=== PATIENT | female | born 1970 | race Caucasian/White ===

== ENCOUNTER 2019-04-05 15:00 | Inpatient (IN) | payer OTHER ==
[~2019-04-05] VITALS: Ht 157.5 cm; Wt 61.2 kg
[2019-04-05 16:25] VITALS: BP 105/59
[2019-04-05] MEDS ORDERED: LEVO137T3 PO (17:12)
--- NOTE | 2019-04-05 17:42 | NUR ---
Admit: Patient admitted from [facility] ER. Patient arrived to unit via gurney accompanied by EMS. Oriented patient to room. Patient reported vision changes x3 since November. patient recently found out she has a septal defect and was scheduled for surgery on Thursday. Consult's called in to answering service
[2019-04-05] MEDS ORDERED: ASPI325T8 PO (17:51)
[2019-04-05 19:50] VITALS: BP 104/51
[2019-04-05 23:30] VITALS: BP 93/51
[2019-04-06 02:45] VITALS: BP 92/50
[2019-04-06 04:35] LABS: BASO # 0.1 x10^3/uL (0.0-0.2); BASO % 1 % (0-3); EOS # 0.1 x10^3/uL (0.0-0.7); EOS % 3 % (0-3); HEMATOCRIT 30.5 % (36.0-47.0); LYMPH # 2.2 x10^3/uL (1.0-4.8); LYMPH % 44 % (24-48); MEAN CORPUSCULAR HEMOGLOBIN 28 pg (25-35); MEAN CORPUSCULAR HGB CONC 33 g/dL (31-37); MEAN CORPUSCULAR VOLUME 85 fL (79-100); MONO # 0.5 x10^3/uL (0.0-1.1); MONO % 10 % (0-9); NEUT % 42 % (31-73); PLATELET COUNT 273 x10^3/uL (140-400); RED BLOOD COUNT 3.59 x10^6/uL (3.50-5.40); RED CELL DISTRIBUTION WIDTH 15.5 % (11.5-14.5); WHITE BLOOD COUNT 4.9 x10^3/uL (4.0-11.0)
[2019-04-06 04:50] LABS: ALBUMIN 3.3 g/dL (3.4-5.0); ALBUMIN/GLOBULIN RATIO 1.2 (1.0-1.7); CALCIUM 8.6 mg/dL (8.5-10.1); GFR 58.7; POTASSIUM 4.4 mmol/L (3.5-5.1); TOTAL BILIRUBIN 0.1 mg/dL (0.2-1.0)
[2019-04-06 04:51] LABS: CHOLESTEROL/HDL RATIO 3.1
[2019-04-06 07:00] VITALS: BP 99/65
[2019-04-06] MEDS ORDERED: ASA/APAP/CAFFEINE 250/250/65MG TABLET. PO PRN (09:30)
--- NOTE | 2019-04-06 10:17 | PDOC ---
[employer] PROGRESS NOTE Chief Complaint Chief Complaint TIA Right eye vision changes History of Present Illness History of Present Illness 04/06/19 Pt seen and examined at bedside Was transferred by EMS from [facility] Was awake and alert, in good spirits Complains of headache, was given Excedrin Was able to explain about PFO and previous TIAs Consulted with neurology and cardiology DW RN Charts and labs reviewed Vitals/I&O Vitals/I&O: Vital Signs Date Time Temp Pulse Resp B/P (MAP) Pulse Ox O2 Delivery O2 Flow Rate FiO2 04/06/19 07:00 98.0 71 16 99/65 (76) 99 Room Air 98.0 I & O 04/05/19 04/05/19 04/06/19 15:00 23:00 07:00 Intake Total 200 ml 600 ml Balance 200 ml 600 ml Physical Exam General: Alert, Oriented X3, Cooperative, No acute distress Heart: Regular rate Lungs: Clear Abdomen: Normal bowel sounds, Soft Extremities: No clubbing, No cyanosis, No edema, Normal pulses Skin: No rashes, No breakdown, No significant lesion Labs Labs: Laboratory Tests Test 04/05/19 19:35 04/06/19 03:10 Erythrocyte Sedimentation Rate 14 (0-25) Vitamin B12 Level 555 pg/mL (247-911) Thyroid Stimulating Hormone (TSH) 2.093 uIU/mL (0.358-3.74) White Blood Count 4.9 x10^3/uL (4.0-11.0) Red Blood Count 3.59 x10^6/uL (3.50-5.40) Hemoglobin 10.0 g/dL (12.0-15.5) Hematocrit 30.5 % (36.0-47.0) Mean Corpuscular Volume 85 fL (79-100) Mean Corpuscular Hemoglobin 28 pg (25-35) Mean Corpuscular Hemoglobin Concent 33 g/dL (31-37) Red Cell Distribution Width 15.5 % (11.5-14.5) Platelet Count 273 x10^3/uL (140-400) Neutrophils (%) (Auto) 42 % (31-73) Lymphocytes (%) (Auto) 44 % (24-48) Monocytes (%) (Auto) 10 % (0-9) Eosinophils (%) (Auto) 3 % (0-3) Basophils (%) (Auto) 1 % (0-3) Neutrophils # (Auto) 2.0 x10^3/uL (1.8-7.7) Lymphocytes # (Auto) 2.2 x10^3/uL (1.0-4.8) Monocytes # (Auto) 0.5 x10^3/uL (0.0-1.1) Eosinophils # (Auto) 0.1 x10^3/uL (0.0-0.7) Basophils # (Auto) 0.1 x10^3/uL (0.0-0.2) Sodium Level 143 mmol/L (136-145) Potassium Level 4.4 mmol/L (3.5-5.1) Chloride Level 108 mmol/L (98-107) Carbon Dioxide Level 26 mmol/L (21-32) Anion Gap 9 (6-14) Blood Urea Nitrogen 17 mg/dL (7-20) Creatinine 1.0 mg/dL (0.6-1.0) Estimated GFR (Cockcroft-Gault) 58.7 BUN/Creatinine Ratio 17 (6-20) Glucose Level 90 mg/dL (70-99) Calcium Level 8.6 mg/dL (8.5-10.1) Total Bilirubin 0.1 mg/dL (0.2-1.0) Aspartate Amino Transf (AST/SGOT) 20 U/L (15-37) Alanine Aminotransferase (ALT/SGPT) 16 U/L (14-59) Alkaline Phosphatase 46 U/L (46-116) Total Protein 6.0 g/dL (6.4-8.2) Albumin 3.3 g/dL (3.4-5.0) Albumin/Globulin Ratio 1.2 (1.0-1.7) Triglycerides Level 56 mg/dL (0-150) Cholesterol Level 157 mg/dL (0-200) LDL Cholesterol, Calculated 95 mg/dL (0-100) VLDL Cholesterol, Calculated 11 mg/dL (0-40) Non-HDL Cholesterol Calculated 106 mg/dL (0-129) HDL Cholesterol 51 mg/dL (40-60) Cholesterol/HDL Ratio 3.1 Review of Systems Review of Systems: No nausea, no vomiting No vision changes, no altered mental status Assessment and Plan Assessmemt and Plan Assessment TIA Patent foramen ovale Plan Brain MRI scheduled per neuro Surgery for PFO scheduled for 04/07 Await results of MRI Excedrin for migraine Wound care Full code Comment Review of Relevant I have reviewed the following items amos (where applicable) has been applied. Medications: Current Medications Medications (Trade) Dose Ordered Sig/Lizette Route PRN Reason Start Time Stop Time Status Last Admin Dose Admin Acetaminophen/ Aspirin/Caffeine (Excedrin Migraine) 1 tab PRN Q6HRS PRN PO MIGRAINE HEADACHE 04/06/19 09:30 04/06/19 09:49 MONI MORRIS III DO Apr 06, 2019 10:17
[2019-04-06 11:00] VITALS: BP 97/57
--- NOTE | 2019-04-06 12:07 | RAD ---
BRAIN W/O CONTRAST History: Right eye vision changes Technique: Multiplanar, multi sequential MR imaging was performed of the brain without contrast. Comparison: None Findings: No acute infarct. No intracranial hemorrhage. No mass effect. No hydrocephalus. Extra-axial spaces are unremarkable. Incidentally noted small pineal cyst. Symmetric appearance of the globes. No infiltration of the retro-orbital fat. Normal course of the optic nerve with normal appearance of the optic chiasm. Extraocular muscles appear normal. Right maxillary sinus mucosal thickening with fluid. Impression: 1. No acute intracranial abnormality. 2. Right maxillary sinus disease, can be seen with acute sinusitis in the appropriate clinical setting. Electronically signed by: Dion Rodriguez DO (04/06/2019 12:04 PM) [id number]
--- NOTE | 2019-04-06 12:30 | PDOC2 ---
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 This is not the first time this happened to her. Her initial episode was 11/2018 and had left arm paresthesia at that time and also circumoral tingling blurred vision and also difficulty remembering names of individuals that she had known in the setting of heavy menstrual bleed. 02/2019 She had another episode and this is more isolated to her vision and also at that time with iatrogenic hyperthyroidism due to Synthroid use. She was evaluated by neurologist.and noted with photopsia and blurred vision that lasted about 40 minutes, also with IBRAHIM, and was suspected with TIA vs migraine. Yesterday she presented at [place] with same problem. She was at work when she suddenly she could not see to her right eye and her vision is like looking to a kaleidoscope. This time she also has heavy menstrual bleed and also was having bilateral IBRAHIM felt pounding and pressure. She still has regular periods. Her visual deficit lasted for about 30 minutes. Denies any other focal deficits. PAST MEDICAL HISTORY Cardiovascular: Other (PFO) CENTRAL NERVOUS SYSTEM: Migraine, TIA GI: No pertinent hx Heme/Onc: Anemia NOS Hepatobiliary: No pertinent hx Musculoskeletal: Osteoarthritis Rheumatologic: No pertinent hx Infectious disease: No pertinent hx ENT: No pertinent hx Renal/: No pertinent hx Endocrine: Hypothyroidism, Other (menorrhagia) Dermatology: No pertinent hx PAST SURGICAL HISTORY Past Surgical History: Tonsillectomy, Other (bladder sling) FAMILY HISTORY Family History: Hypertension SOCIAL HISTORY Smoke: No ALCOHOL: occassional Drugs: None Lives: with Family CURRENT MEDICATIONS CURRENT MEDICATIONS Current Medications Medications (Trade) Dose Ordered Sig/Lizette Route PRN Reason Start Time Stop Time Status Last Admin Dose Admin Acetaminophen/ Aspirin/Caffeine (Excedrin Migraine) 1 tab PRN Q6HRS PRN PO MIGRAINE HEADACHE 04/06/19 09:30 04/06/19 09:49 ALLERGIES ALLERGIES: Coded Allergies: No Known Allergies (Verified Allergy, Unknown, 04/06/19) ROS Review of System 14 point ROS evaluated with pertinent positives noted per HPI PHYSICAL EXAM General: Alert, Oriented X3, Cooperative, No acute distress HEENT: Atraumatic, Mucous membr. moist/pink Lungs: Clear to auscultation, Normal air movement Heart: Regular rate (SR), Normal S1, Normal S2, No murmurs Abdomen: Soft, No tenderness Extremities: No cyanosis, No edema Skin: No breakdown, No significant lesion Neuro: Normal speech, Sensation intact Psych/Mental Status: Mental status NL, Mood NL MUSCULOSKELETAL: Osteoarthritic changes both hands VITALS/I&O VITALS/I&O: Vital Signs Date Time Temp Pulse Resp B/P (MAP) Pulse Ox O2 Delivery O2 Flow Rate FiO2 04/06/19 08:00 Room Air 04/06/19 07:00 98.0 71 16 99/65 (76) 99 98.0 I & O 04/05/19 04/05/19 04/06/19 15:00 23:00 07:00 Intake Total 200 ml 600 ml Balance 200 ml 600 ml LABS Lab: Laboratory Tests Test 04/05/19 19:35 04/06/19 03:10 Erythrocyte Sedimentation Rate 14 (0-25) Vitamin B12 Level 555 pg/mL (247-911) Thyroid Stimulating Hormone (TSH) 2.093 uIU/mL (0.358-3.74) White Blood Count 4.9 x10^3/uL (4.0-11.0) Red Blood Count 3.59 x10^6/uL (3.50-5.40) Hemoglobin 10.0 g/dL (12.0-15.5) L Hematocrit 30.5 % (36.0-47.0) L Mean Corpuscular Volume 85 fL (79-100) Mean Corpuscular Hemoglobin 28 pg (25-35) Mean Corpuscular Hemoglobin Concent 33 g/dL (31-37) Red Cell Distribution Width 15.5 % (11.5-14.5) H Platelet Count 273 x10^3/uL (140-400) Neutrophils (%) (Auto) 42 % (31-73) Lymphocytes (%) (Auto) 44 % (24-48) Monocytes (%) (Auto) 10 % (0-9) H Eosinophils (%) (Auto) 3 % (0-3) Basophils (%) (Auto) 1 % (0-3) Neutrophils # (Auto) 2.0 x10^3/uL (1.8-7.7) Lymphocytes # (Auto) 2.2 x10^3/uL (1.0-4.8) Monocytes # (Auto) 0.5 x10^3/uL (0.0-1.1) Eosinophils # (Auto) 0.1 x10^3/uL (0.0-0.7) Basophils # (Auto) 0.1 x10^3/uL (0.0-0.2) Sodium Level 143 mmol/L (136-145) Potassium Level 4.4 mmol/L (3.5-5.1) Chloride Level 108 mmol/L (98-107) H Carbon Dioxide Level 26 mmol/L (21-32) Anion Gap 9 (6-14) Blood Urea Nitrogen 17 mg/dL (7-20) Creatinine 1.0 mg/dL (0.6-1.0) Estimated GFR (Cockcroft-Gault) 58.7 BUN/Creatinine Ratio 17 (6-20) Glucose Level 90 mg/dL (70-99) Calcium Level 8.6 mg/dL (8.5-10.1) Total Bilirubin 0.1 mg/dL (0.2-1.0) L Aspartate Amino Transferase (AST) 20 U/L (15-37) Alanine Aminotransferase (ALT) 16 U/L (14-59) Alkaline Phosphatase 46 U/L (46-116) Total Protein 6.0 g/dL (6.4-8.2) L Albumin 3.3 g/dL (3.4-5.0) L Albumin/Globulin Ratio 1.2 (1.0-1.7) Triglycerides Level 56 mg/dL (0-150) Cholesterol Level 157 mg/dL (0-200) LDL Cholesterol, Calculated 95 mg/dL (0-100) VLDL Cholesterol, Calculated 11 mg/dL (0-40) Non-HDL Cholesterol Calculated 106 mg/dL (0-129) HDL Cholesterol 51 mg/dL (40-60) Cholesterol/HDL Ratio 3.1 Laboratory Tests 04/06/19 03:10 Laboratory Tests 04/06/19 03:10 ECHOCARDIOGRAM ECHOCARDIOGRAM <Conclusion> The left ventricular systolic function is normal. The Ejection Fraction is 60%. There is normal LV segmental wall motion. Trace mitral regurgitation. Trace tricuspid regurgitation with an estimated PAP of 22 mmHg. There is no evidence of significant pericardial effusion. Bubble study positive for PFO/ASD DATE: 03/30/19 0809 ASSESSMENT/PLAN ASSESSMENT/PLAN 1. Possible TIA vs Migraine with visual aura with past sensory/language aura 2. Menorrhagia: which could have induced above 3. PFO: initially noted 03/30/2019 via TTE 4. Hypothyroidism: on replacement Recommendations 1. Brain MRI, consult neurology 2. ASA given 3. Plan for PFO closure tomorrow pending MRI studies. 4. Will need GROCERY SUPERVISOR referral for menorrhagia management. GREGORY MOLINA MD 04/06/19 1643: CARDIAC CONSULT ASSESSMENT/PLAN ASSESSMENT/PLAN Patient seen and examined. Agree with VIDEOTAPE OPERATOR's assessment and plan. Patient admitted for recurrent episodes of TIA and probable migraine with aura Recent 2-D echo with bubbles showed PFO Plan for percutaneous closure of patent foramen ovale tomorrow Risks and benefits explained and she is agreeable Thank you for your consultation JANET MITTAL APRN Apr 06, 2019 12:30 GREGORY MOLINA MD Apr 06, 2019 16:43
--- NOTE | 2019-04-06 13:49 | NUR ---
SS following for discharge planning. SS reviewed pt chart. Pt is from home with spouse and is currently on room air. No discharge needs noted at this time. SS will continue to follow for discharge planning.
[2019-04-06 15:00] VITALS: BP 100/55
--- NOTE | 2019-04-06 16:22 | PDOC2 ---
NEUROLOGY CONSULT Date of Admission Date of Admission DATE: 04/06/19 TIME: 15:29 Reason for Consult Reason for Consult: NEUROLOGY CONSULTATION 04-05-2019 IMPRESSION: TIA? Migraine variant with aura symptoms. Premenstrual syndrome. PFO. RECOMMENDATIONS/PLAN: Brain MRI performed. Cardiology consulted. ASA daily. HISTORY OF PRESENT ILLNESS This is a 48-year-old female patient without significant PMH had several episodes of right eye vision disturbances since 11/2018. Her right eye visual disturbances were described as if spots in field or decreased brightness in field lasting for about 15 minutes then resolved. She had headaches afterwards. She stated she often has headaches during her menstrual period for several days, but can be halted by OTC NSAIDs. She was seen in [place] and was thought to have TIA and PFO was found. She has been taken ASA 325 mg daily for about 2 months now, but still has similar episode. She had another one in her menstruation period this time. No symptoms of focalized sensory or motor deficits though stated had numbness and tingling in all UE and LE sometime in the past. No symptoms of MS or myelitis. PAST MEDICAL HISTORY Cardiovascular: PFO. CENTRAL NERVOUS SYSTEM: Migraine, TIA ? GI: No pertinent hx Heme/Onc: Anemia NOS Hepatobiliary: No pertinent hx Musculoskeletal: Osteoarthritis Rheumatologic: No pertinent hx Infectious disease: No pertinent hx ENT: No pertinent hx Renal/: No pertinent hx Endocrine: Hypothyroidism, Other (menorrhagia) Dermatology: No pertinent hx PAST SURGICAL HISTORY Tonsillectomy, Other (bladder sling) FAMILY HISTORY Hypertension ALLERGY: NKDA MEDICATIONS: Refer to MAR SOCIAL HISTORY: Lives at home. Denies smoking and illicit drug use. She drinks occasionally. REVIEW OF SYSTEMS: Constitutional: No malnutrition, weight loss, cachexia. Head: No traumatic brain or head injury. Skin: No edema, or rash. Ear: No infection. Eyes: No vision loss or color blindness. Nose: No bleeding or purulent discharges. Hearing: No hearing decrease. Neck: No injury. Breast: No history of cancer, masses,or discharges. Cardiac: No SC, arrhythmia,claudication, CAD, s/p CABG, AFib, Pacemaker Placement, HTN, HLD. Pulmonary: No pneumonia, COPD. GI: No GI ulcer, GI bleeding, GERD. Urinary/genital: No dysuria, incontinence, urinary retention. Endocrinologic: No cousin face, craniofacial dysmorphism. Skeletomuscular: No muscular atrophy, deformity. Neurological: see HP. Psychiatric: Denies drug use/abuse. Otherwise, not -rxqsv review of systems. PHYSICAL EXAMINATION: General appearance is in no acute distress. HEENT: Normocephalic and nontraumatic. Eyes, nose, ears, and throat are unremarkable. Neck is supple. No lymphadenopathy. No crepitus. Cardiovascular: S1, S2, regular rate and rhythm. Pulmonary: Clear to auscultation bilaterally. Abdomen: Bowel sounds are positive. Abdomen is soft, nontender, and nondistended. Extremities: No rash, lesions, or edema. No restriction of range of motion NEUROLOGICAL EXAMINATION: Alert Oriented to time, place and person. PERRL. EOMI. CN: no focal findings. Muscle tone: within normal. Muscle strength: 5 DTR: 2 Plantar reflex: Flexor response bilaterally Gait: not examined in bed. Sensory exam: no abnormal findings. No cerebellar signs elicited. F-T-N test accurate. Current Medications Current Medications Current Medications Acetaminophen/ Aspirin/Caffeine (Excedrin Migraine) 1 tab PRN Q6HRS PRN PO MIGRAINE HEADACHE Last administered on 04/06/19at 09:49; Start 04/06/19 at 09:30 Active Scripts Active Reported Aspirin 325 Mg Tablet 325 Mg PO DAILY Levothyroxine Sodium 137 Mcg Tablet 137 Mcg PO DAILY06 Allergies Allergies: Allergies Coded Allergies Type Severity Reaction Last Updated Verified No Known Allergies Allergy Unknown 04/06/19 Yes ROS Review of System The patient denies any associated fevers, chills, headache, ear pain, rhinorrhea, sore throat, stiff neck, productive cough, chest pain, shortness of breath, back or flank pain, abdominal pain, nausea, vomiting, diarrhea, constipation, dysuria, rash, numbness, weakness, tingling, incontinence, difficulty ambulating, or diaphoresis. Physical Exam Physical Exam General: Well developed, well nourished, no acute distress, well appearing HEENT: Pupils equally round and reactive to light, EOMI, no discharge, normal conjunctiva Neck: Supple, no nuchal rigidity, no JVD, trachea midline, no tenderness Cardiac: RRR, no murmurs, no gallops, no rubs Chest/Lungs: CTAB, no wheeze, no rhonchi, no crackles Abdomen: soft, non-distended, no guarding, no peritoneal signs, non-tender Back: No tenderness Extremities: no edema, pulses intact, non-tender,capillary refill <3 sec bilateral upper and lower extremities, Neuro: Alert and oriented x 4, no focal deficits, normal speech Vitals Vitals: Vital Signs Date Time Temp Pulse Resp B/P (MAP) Pulse Ox O2 Delivery O2 Flow Rate FiO2 04/06/19 15:00 98.1 81 16 100/55 (70) 100 Room Air 98.1 Labs Labs Laboratory Tests Test 04/05/19 19:35 04/06/19 03:10 Erythrocyte Sedimentation Rate 14 (0-25) Vitamin B12 Level 555 pg/mL (247-911) Thyroid Stimulating Hormone (TSH) 2.093 uIU/mL (0.358-3.74) White Blood Count 4.9 x10^3/uL (4.0-11.0) Red Blood Count 3.59 x10^6/uL (3.50-5.40) Hemoglobin 10.0 g/dL (12.0-15.5) Hematocrit 30.5 % (36.0-47.0) Mean Corpuscular Volume 85 fL (79-100) Mean Corpuscular Hemoglobin 28 pg (25-35) Mean Corpuscular Hemoglobin Concent 33 g/dL (31-37) Red Cell Distribution Width 15.5 % (11.5-14.5) Platelet Count 273 x10^3/uL (140-400) Neutrophils (%) (Auto) 42 % (31-73) Lymphocytes (%) (Auto) 44 % (24-48) Monocytes (%) (Auto) 10 % (0-9) Eosinophils (%) (Auto) 3 % (0-3) Basophils (%) (Auto) 1 % (0-3) Neutrophils # (Auto) 2.0 x10^3/uL (1.8-7.7) Lymphocytes # (Auto) 2.2 x10^3/uL (1.0-4.8) Monocytes # (Auto) 0.5 x10^3/uL (0.0-1.1) Eosinophils # (Auto) 0.1 x10^3/uL (0.0-0.7) Basophils # (Auto) 0.1 x10^3/uL (0.0-0.2) Sodium Level 143 mmol/L (136-145) Potassium Level 4.4 mmol/L (3.5-5.1) Chloride Level 108 mmol/L (98-107) Carbon Dioxide Level 26 mmol/L (21-32) Anion Gap 9 (6-14) Blood Urea Nitrogen 17 mg/dL (7-20) Creatinine 1.0 mg/dL (0.6-1.0) Estimated GFR (Cockcroft-Gault) 58.7 BUN/Creatinine Ratio 17 (6-20) Glucose Level 90 mg/dL (70-99) Calcium Level 8.6 mg/dL (8.5-10.1) Total Bilirubin 0.1 mg/dL (0.2-1.0) Aspartate Amino Transf (AST/SGOT) 20 U/L (15-37) Alanine Aminotransferase (ALT/SGPT) 16 U/L (14-59) Alkaline Phosphatase 46 U/L (46-116) Total Protein 6.0 g/dL (6.4-8.2) Albumin 3.3 g/dL (3.4-5.0) Albumin/Globulin Ratio 1.2 (1.0-1.7) Triglycerides Level 56 mg/dL (0-150) Cholesterol Level 157 mg/dL (0-200) LDL Cholesterol, Calculated 95 mg/dL (0-100) VLDL Cholesterol, Calculated 11 mg/dL (0-40) Non-HDL Cholesterol Calculated 106 mg/dL (0-129) HDL Cholesterol 51 mg/dL (40-60) Cholesterol/HDL Ratio 3.1 Laboratory Tests Test 04/05/19 19:35 04/06/19 03:10 Erythrocyte Sedimentation Rate 14 (0-25) Vitamin B12 Level 555 pg/mL (247-911) Thyroid Stimulating Hormone (TSH) 2.093 uIU/mL (0.358-3.74) White Blood Count 4.9 x10^3/uL (4.0-11.0) Red Blood Count 3.59 x10^6/uL (3.50-5.40) Hemoglobin 10.0 g/dL (12.0-15.5) Hematocrit 30.5 % (36.0-47.0) Mean Corpuscular Volume 85 fL (79-100) Mean Corpuscular Hemoglobin 28 pg (25-35) Mean Corpuscular Hemoglobin Concent 33 g/dL (31-37) Red Cell Distribution Width 15.5 % (11.5-14.5) Platelet Count 273 x10^3/uL (140-400) Neutrophils (%) (Auto) 42 % (31-73) Lymphocytes (%) (Auto) 44 % (24-48) Monocytes (%) (Auto) 10 % (0-9) Eosinophils (%) (Auto) 3 % (0-3) Basophils (%) (Auto) 1 % (0-3) Neutrophils # (Auto) 2.0 x10^3/uL (1.8-7.7) Lymphocytes # (Auto) 2.2 x10^3/uL (1.0-4.8) Monocytes # (Auto) 0.5 x10^3/uL (0.0-1.1) Eosinophils # (Auto) 0.1 x10^3/uL (0.0-0.7) Basophils # (Auto) 0.1 x10^3/uL (0.0-0.2) Sodium Level 143 mmol/L (136-145) Potassium Level 4.4 mmol/L (3.5-5.1) Chloride Level 108 mmol/L (98-107) Carbon Dioxide Level 26 mmol/L (21-32) Anion Gap 9 (6-14) Blood Urea Nitrogen 17 mg/dL (7-20) Creatinine 1.0 mg/dL (0.6-1.0) Estimated GFR (Cockcroft-Gault) 58.7 BUN/Creatinine Ratio 17 (6-20) Glucose Level 90 mg/dL (70-99) Calcium Level 8.6 mg/dL (8.5-10.1) Total Bilirubin 0.1 mg/dL (0.2-1.0) Aspartate Amino Transf (AST/SGOT) 20 U/L (15-37) Alanine Aminotransferase (ALT/SGPT) 16 U/L (14-59) Alkaline Phosphatase 46 U/L (46-116) Total Protein 6.0 g/dL (6.4-8.2) Albumin 3.3 g/dL (3.4-5.0) Albumin/Globulin Ratio 1.2 (1.0-1.7) Triglycerides Level 56 mg/dL (0-150) Cholesterol Level 157 mg/dL (0-200) LDL Cholesterol, Calculated 95 mg/dL (0-100) VLDL Cholesterol, Calculated 11 mg/dL (0-40) Non-HDL Cholesterol Calculated 106 mg/dL (0-129) HDL Cholesterol 51 mg/dL (40-60) Cholesterol/HDL Ratio 3.1 ANANTH VILLANUEVA MD Apr 06, 2019 16:22
[2019-04-06 19:00] VITALS: BP 127/66
[2019-04-06 23:00] VITALS: BP 103/51
[2019-04-07] VITALS (10 sets, daily range): BP systolic 100–121; BP diastolic 54–67
[2019-04-07] MEDS ORDERED: LIDOCAINE 2% PF 5 ML VIAL. ONE (06:36)
[2019-04-07] MEDS ORDERED: PROPOFOL 40 ML IV ONE (06:36)
[2019-04-07] MEDS ORDERED: PROPOFOL 100 ML IV ONE (06:36)
[2019-04-07] MEDS ORDERED: IOHEXOL 300 MG/ML 100ML VIAL. ONE (06:38)
[2019-04-07] MEDS ORDERED: LIDOCAINE 1% Multi-Dose 20 ML VIAL. ONE (06:38)
[2019-04-07] MEDS ORDERED: HEPARIN for ARTERIAL LINE 1,500 ML ONE (06:38)
[2019-04-07] MEDS ORDERED: KETAMINE HCL IN NACL, ISO-OSM 50 MG/5 ML SYRINGE ONE (07:29)
[2019-04-07] MEDS ORDERED: MIDAZOLAM HCL/PF 2 MG/2 ML VIAL. ONE (07:30)
[2019-04-07] MEDS ORDERED: CLOPIDOGREL BISULFATE 75 MG TABLET ONE (07:46)
[2019-04-07] MEDS ORDERED: ASPIRIN 325 MG TABLET ONE (07:46)
[2019-04-07] MEDS ORDERED: HEPARIN for IV BOLUS 10,000 UNIT/10 ML VIAL. ONE (07:46)
[2019-04-07] MEDS ORDERED: LIDOCAINE 2% TOPICAL JELLY 30GM TUBE. TP ONE ×2 (07:51→08:30)
[2019-04-07] MEDS ORDERED: BENZOCAINE ONE 20% MUCOSAL SPRAY. (07:51)
[2019-04-07] MEDS ORDERED: ASPIRIN 325 MG TABLET PO ONE (08:30)
[2019-04-07] MEDS ORDERED: HEPARIN for IV BOLUS 10,000 UNIT/10 ML VIAL. IV ONE (08:30)
[2019-04-07] MEDS ORDERED: BENZOCAINE ONE 20% MUCOSAL SPRAY. MM (08:30)
[2019-04-07] MEDS ORDERED: LIDOCAINE 1% Multi-Dose 20 ML VIAL. INJ ONE (08:30)
[2019-04-07] MEDS ORDERED: CLOPIDOGREL BISULFATE 75 MG TABLET PO ONE (08:30)
[2019-04-07] MEDS ORDERED: IOHEXOL 300 MG/ML 100ML VIAL. IART ONE (08:30)
[2019-04-07] MEDS ORDERED: fentaNYL PF VIAL 100 MCG/2 ML VIAL ONE (08:50)
[2019-04-07] MEDS ORDERED: fentaNYL PF VIAL 100 MCG/2 ML VIAL IV ONE ×2 (09:15)
[2019-04-07] MEDS ORDERED: IV 1/2 NORMAL SALINE 1,000 ML IV SCH (10:00)
[2019-04-07] MEDS ORDERED: 0.9 % SODIUM CHLORIDE 10 ML DISP.SYRIN. IV PRN (10:00)
[2019-04-07] MEDS ORDERED: NITROGLYCERIN SUBLINGUAL 0.4 MG BOTTLE OF 25. SL PRN (10:00)
--- NOTE | 2019-04-07 10:05 | CARD ---
MR#: [id number] Date of Study: 04/07/2019 Ordering Physician: GREGORY TIMMONS, Referring Physician: Micha HUSTON: Shima Alvarez RDCS APPROVED REPORT EXAM: Two-dimensional and M-mode echocardiogram with Doppler and color Doppler. INDICATION PFO Reason For Test : PFO Closure PROCEDURE After obtaining informed consent, patient underwent transesophageal echo in the Marketing Coordinator. Type of Sedation : General Anesthesia Sedation was administered by General Anesthesia. Throughout the procedure, the blood pressure, pulse oximetry, cardiac rhythm, and rate were monitored . LEFT VENTRICLE The left ventricle is normal size. There is normal left ventricular wall thickness. The left ventricu lar systolic function is normal. The Ejection Fraction is 55-60%. There is normal LV segmental wall m otion. RIGHT VENTRICLE The right ventricle is normal size. There is normal right ventricular wall thickness. The right ventr icular systolic function is normal. ATRIA The left atrium size is normal. The right atrium size is normal. The atrial septum is mildly aneurysm al. GREAT VESSELS na PERICARDIAL EFFUSION There is no evidence of significant pericardial effusion. Critical Notification Critical Value: No <Conclusion> The left ventricular systolic function is normal. The Ejection Fraction is 55-60%. There is normal LV segmental wall motion. Patent Foramen Ovale closed successfully with 25mm Amplatzer PFO Occluder under PERCY and Fluoro guidan ce. Signed by : Gregory Timmons, Electronically Approved : 04/07/2019 10:05:16
[2019-04-07] MEDS ORDERED: ONDANSETRON PF 4 MG/2 ML VIAL. IVP PRN (10:15)
--- NOTE | 2019-04-07 10:26 | CARD ---
MR#: [id number] Date of Study: 04/07/2019 Ordering Physician: GREGORY MOLINA, Referring Physician: GREGORY MOLINA, Tech: APPROVED REPORT Procedure(s) performed: Successful percutaneous closure of patent foramen ovale under transesophageal and fluoroscopy guidance Fluoro time: 6.6min Dose: 4 Gycm2 Contrast: 4cc INDICATION The indication(s) include : Recurrent cryptogenic episodes of transient ischemic attacks. PROCEDURE NARRATIVE After explaining the risks, benefits and alternative options, informed consent was obtained from tremayne ent. Patient was brought to the cardiac Court Liaison and her right groin was prepped and draped in the us ual fashion. A transesophageal echocardiogram probe was placed and standard tomographic images includ ing color Doppler images were obtained to identify the patent foramen ovale. 10 mL of 2% lidocaine wa s infiltrated into the skin and subcutaneous tissues of right groin for local anesthesia. Venous acce ss was obtained in the right common femoral vein and a 6 Samoan sheath was inserted. A 6 Samoan multi purpose catheter with side holes were then advanced under fluoroscopy guidance and the PFO was crosse d. With the tip of the catheter position in the right upper pulmonic vein, contrast injections were p erformed for left atrial angiography. A 0.035 inch stiff Amplatzer guidewire was then advanced into the left upper pulmonic vein. The venou s access site was sequentially dilated and a 10 Samoan Amplatzer sheath was advanced and the tip was positioned in the left atrium. A 25 mm Amplatzer PFO occluder was then loaded on an Amplatzer Trevisi o intravascular delivery system. This was advanced through the sheath and under PERCY and fluoroscopy g uidance it was successfully deployed across the patent foramen ovale. After confirming position in se veral views, this was released. Hemostasis in the right groin was achieved using Perclose suture clos ure device. Patient tolerated the procedure well. There were no immediate complications. Conclusion Successful percutaneous closure of patent foramen ovale for recurrent and cryptogenic TIA. Recommendations 1. Aspirin 325 mg daily for 6 months 2. Plavix 75 mg daily for 3 months 3. Antibiotic prophylaxis for dental procedures for 6 months Signed by : Gregory Pasnoori, Electronically Approved : 04/07/2019 10:25:32
--- NOTE | 2019-04-07 11:30 | PDOC ---
[facility] PROGRESS NOTE Chief Complaint Chief Complaint TIA Right eye vision changes History of Present Illness History of Present Illness 04/07/19 Pt was seen and examined at bedside Was resting after procedure Joined by Procedure was successful, PFO repaired Right maxillary sinus disease seen on brain MRI Follow up recommended for heavy menstrual bleeding Charts and labs reviewed SARAI RN 04/06/19 Pt seen and examined at bedside Was transferred [facility] Was awake and alert, in good spirits Complains of headache, was given Excedrin Was able to explain about PFO and previous TIAs Consulted with neurology and cardiology SARAI RN Charts and labs reviewed Vitals/I&O Vitals/I&O: Vital Signs Date Time Temp Pulse Resp B/P (MAP) Pulse Ox O2 Delivery O2 Flow Rate FiO2 04/07/19 11:00 98.0 65 18 104/63 (77) 99 Room Air 98.0 04/07/19 10:14 2.0 I & O 04/06/19 04/06/19 04/07/19 14:59 22:59 06:59 Intake Total 1600 ml 0 ml Output Total 801 ml 900 ml 0 ml Balance -801 ml 700 ml 0 ml Physical Exam General: Alert, Oriented X3, Cooperative, No acute distress Heart: Regular rate (SR), Normal S1, Normal S2, No murmurs Lungs: Clear Abdomen: Soft, No tenderness, No masses Extremities: No clubbing, No cyanosis, No edema, Normal pulses, No tenderness/swelling Skin: No rashes, No breakdown, No significant lesion Review of Systems Review of Systems: No nausea, no vomiting No headache, no vision changes Assessment and Plan Assessmemt and Plan Assessment TIA PFO Menorrhagia Plan ASA daily Wound care Cardiac monitoring Activity as tolerated Augmentin for sinusitis [employer] HEAD follow up recommended D/C later today Comment Review of Relevant I have reviewed the following items amos (where applicable) has been applied. Medications: Current Medications Medications (Trade) Dose Ordered Sig/Lizette Route PRN Reason Start Time Stop Time Status Last Admin Dose Admin Heparin Sodium/ Sodium Chloride (HEPARIN for ARTERIAL LINE FLUSH) 1,000 unit 1X ONCE IART 04/07/19 08:30 04/07/19 08:37 DC 04/07/19 08:52 Iohexol (Omnipaque 300 Mg/ml) 4 ml 1X ONCE IART 04/07/19 08:30 04/07/19 08:37 DC 04/07/19 08:54 Clopidogrel Bisulfate (Plavix) 300 mg 1X ONCE PO 04/07/19 08:30 04/07/19 08:37 DC 04/07/19 08:54 Aspirin (Shirlene Aspirin) 325 mg 1X ONCE PO 04/07/19 08:30 04/07/19 08:37 DC 04/07/19 08:54 Heparin Sodium (Porcine) (Heparin Sodium) 5,000 unit 1X ONCE IV 04/07/19 08:30 04/07/19 08:37 DC 04/07/19 08:56 Cefazolin Sodium 50 ml @ 100 mls/hr 1X ONCE IV 04/07/19 08:30 04/07/19 08:59 DC 04/07/19 08:00 Lidocaine HCl (Lidocaine 1% 20ml Vial) 20 ml 1X ONCE INJ 04/07/19 08:30 04/07/19 08:37 DC 04/07/19 08:53 Benzocaine (Hurricaine One) 2 spray 1X ONCE MM 04/07/19 08:30 04/07/19 08:37 DC 04/07/19 08:53 Lidocaine HCl (Xylocaine 2% Topical 30gm Tube) 1 kirk 1X ONCE TP 04/07/19 08:30 04/07/19 08:37 DC 04/07/19 08:30 Fentanyl Citrate (Fentanyl 2ml Vial) 50 mcg 1X ONCE IV 04/07/19 09:15 04/07/19 09:16 DC 04/07/19 08:51 Fentanyl Citrate (Fentanyl 2ml Vial) 50 mcg 1X ONCE IV 04/07/19 09:15 04/07/19 09:16 DC 04/07/19 09:00 Ondansetron HCl (Zofran) 4 mg PRN Q6HRS PRN IVP NAUSEA/VOMITING 04/07/19 10:15 04/07/19 10:19 MONI MORRIS III DO Apr 07, 2019 11:30
--- NOTE | 2019-04-07 13:15 | PDOC ---
PROGRESS NOTES Assessment Assessment TIA? Migraine variant with aura symptoms. PFO. No evidence of acute CVA this time. No evidence of acute optic neuritis this time. RECOMMENDATIONS/PLAN: ASA daily. She has PFO closure on 04/07/19. Discussed with her and her at bedside on a daily basis. HISTORY OF PRESENT ILLNESS This is a 48-year-old female patient without significant PMH had several episodes of right eye vision disturbances since 11/2018. Her right eye visual disturbances were described as if spots in field or decreased brightness in f ield lasting for about 15 minutes then resolved. She had headaches afterwards. She stated she often has headaches during her menstrual period for several days, but can be halted by OTC NSAIDs. She was seen in [place] and was thought to have TIA and PFO was found. She has been taken ASA 325 mg daily for about 2 months now, but still has similar episode. She had another one in her menstruation period this time. No symptoms of focalized sensory or motor deficits though stated had numbness and tingling in all UE and LE sometime in the past. No symptoms of MS or myelitis. No recurrent episodes since being here. PAST MEDICAL HISTORY Cardiovascular: PFO. CENTRAL NERVOUS SYSTEM: Migraine, TIA ? GI: No pertinent hx Heme/Onc: Anemia NOS Hepatobiliary: No pertinent hx Musculoskeletal: Osteoarthritis Rheumatologic: No pertinent hx Infectious disease: No pertinent hx ENT: No pertinent hx Renal/: No pertinent hx Endocrine: Hypothyroidism, Other (menorrhagia) Dermatology: No pertinent hx PAST SURGICAL HISTORY Tonsillectomy, Other (bladder sling) FAMILY HISTORY Hypertension ALLERGY: NKDA MEDICATIONS: Refer to MAR SOCIAL HISTORY: Lives at home. Denies smoking and illicit drug use. She drinks occasionally. REVIEW OF SYSTEMS: Constitutional: No malnutrition, weight loss, cachexia. Head: No traumatic brain or head injury. Skin: No edema, or rash. Ear: No infection. Eyes: No vision loss or color blindness. Nose: No bleeding or purulent discharges. Hearing: No hearing decrease. Neck: No injury. Breast: No history of cancer, masses,or discharges. Cardiac: No LA, arrhythmia,claudication, CAD, s/p CABG, AFib, Pacemaker Placement, HTN, HLD. Pulmonary: No pneumonia, COPD. GI: No GI ulcer, GI bleeding, GERD. Urinary/genital: No dysuria, incontinence, urinary retention. Endocrinologic: No cousin face, craniofacial dysmorphism. Skeletomuscular: No muscular atrophy, deformity. Neurological: see HP. Psychiatric: Denies drug use/abuse. Otherwise, not [id number] review of systems. PHYSICAL EXAMINATION: General appearance is in no acute distress. HEENT: Normocephalic and nontraumatic. Eyes, nose, ears, and throat are unremarkable. Neck is supple. No lymphadenopathy. No crepitus. Cardiovascular: S1, S2, regular rate and rhythm. Pulmonary: Clear to auscultation bilaterally. Abdomen: Bowel sounds are positive. Abdomen is soft, nontender, and nondist ended. Extremities: No rash, lesions, or edema. No restriction of range of motion NEUROLOGICAL EXAMINATION: Alert Oriented to time, place and person. PERRL. EOMI. CN: no focal findings. Muscle tone: within normal. Muscle strength: 5 DTR: 2 Plantar reflex: Flexor response bilaterally Gait: At her baseline normal. Sensory exam: no abnormal findings. No cerebellar signs elicited. F-T-N test accurate. Objective Objective Vital Signs Date Time Temp Pulse Resp B/P (MAP) Pulse Ox O2 Delivery O2 Flow Rate FiO2 04/07/19 11:00 98.0 65 18 104/63 (77) 99 Room Air 98.0 04/07/19 10:14 2.0 Intake and Output 04/07/19 07:00 Intake Total 1600 ml Output Total 1701 ml Balance -101 ml Intake Oral 1600 ml Output Urine Total 1701 ml Vitals Signs Vitals VS - Last 72 Hours, by Label Date Time Temp Pulse Resp B/P (MAP) Pulse Ox O2 Delivery O2 Flow Rate FiO2 04/07/19 11:00 98.0 65 18 104/63 (77) 99 Room Air 98.0 04/07/19 10:59 70 104/67 (79) 04/07/19 10:48 65 104/63 (77) 04/07/19 10:44 63 101/65 (77) 04/07/19 10:29 63 101/64 (76) 04/07/19 10:14 71 100/64 (76) 04/07/19 10:14 100 Nasal Cannula 2.0 04/07/19 10:14 100 Nasal Cannula 2.0 04/07/19 09:58 71 104/65 (78) 04/07/19 09:44 100/59 (73) 04/07/19 09:17 97.3 61 16 93/51 100 Nasal Cannula 2 97.3 04/07/19 09:01 75 17 96/56 Nasal Cannula 2 04/07/19 09:00 17 100 Nasal Cannula 2.0 04/07/19 08:51 16 100 Nasal Cannula 2.0 04/07/19 08:47 97.2 75 17 98/58 100 Nasal Cannula 2 97.2 04/07/19 08:47 Nasal Cannula 2 04/07/19 03:00 98.0 63 16 114/54 (74) 98 Room Air 98.0 04/06/19 23:00 98.1 65 20 103/51 (68) 98 Room Air 98.1 04/06/19 20:00 Room Air 04/06/19 19:00 98.1 84 16 127/66 (86) 98 Room Air 98.1 04/06/19 15:00 98.1 81 16 100/55 (70) 100 Room Air 98.1 04/06/19 11:00 98.0 65 16 97/57 (70) 100 Room Air 98.0 04/06/19 08:00 Room Air 04/06/19 07:00 98.0 71 16 99/65 (76) 99 Room Air 98.0 Medication Medications Current Medications Aspirin (Shirlene Aspirin) 325 mg 1X ONCE PO Last administered on 04/07/19at 08:54; Start 04/07/19 at 08:30; Stop 04/07/19 at 08:37; Status DC Aspirin (Shirlene Aspirin) 325 mg STK-MED ONCE .ROUTE ; Start 04/07/19 at 07:46; Stop 04/07/19 at 07:46; Status DC Aspirin (Ecotrin) 325 mg DAILYWBKFT PO ; Start 04/08/19 at 08:00 Benzocaine (Hurricaine One) 1 spray STK-MED ONCE .ROUTE ; Start 04/07/19 at 07:51; Stop 04/07/19 at 07:52; Status DC Benzocaine (Hurricaine One) 2 spray 1X ONCE MM Last administered on 04/07/19at 08:53; Start 04/07/19 at 08:30; Stop 04/07/19 at 08:37; Status DC Cefazolin Sodium 50 ml @ 100 mls/hr 1X ONCE IV Last administered on 04/07/19at 08:00; Start 04/07/19 at 08:30; Stop 04/07/19 at 08:59; Status DC Cefazolin Sodium 50 ml @ As Directed STK-MED ONCE IV ; Start 04/07/19 at 07:46; Stop 04/07/19 at 07:47; Status DC Clopidogrel Bisulfate (Plavix) 75 mg DAILYWBKFT PO ; Start 04/08/19 at 08:00 Clopidogrel Bisulfate (Plavix) 75 mg STK-MED ONCE .ROUTE ; Start 04/07/19 at 07:46; Stop 04/07/19 at 07:46; Status DC Clopidogrel Bisulfate (Plavix) 300 mg 1X ONCE PO Last administered on 04/07/19 at 08:54; Start 04/07/19 at 08:30; Stop 04/07/19 at 08:37; Status DC Fentanyl Citrate (Fentanyl 2ml Vial) 50 mcg 1X ONCE IV Last administered on 04/07/19at 08:51; Start 04/07/19 at 09:15; Stop 04/07/19 at 09:16; Status DC Fentanyl Citrate (Fentanyl 2ml Vial) 50 mcg 1X ONCE IV Last administered on 04/07/19at 09:00; Start 04/07/19 at 09:15; Stop 04/07/19 at 09:16; Status DC Fentanyl Citrate (Fentanyl 2ml Vial) 100 mcg STK-MED ONCE .ROUTE ; Start 04/07/19 at 08:50; Stop 04/07/19 at 08:50; Status DC Heparin Sodium (Porcine) (Heparin Sodium) 5,000 unit 1X ONCE IV Last administered on 04/07/19at 08:56; Start 04/07/19 at 08:30; Stop 04/07/19 at 08:37; Status DC Heparin Sodium (Porcine) (Heparin Sodium) 10,000 unit STK-MED ONCE .ROUTE ; Start 04/07/19 at 07:46; Stop 04/07/19 at 07:46; Status DC Heparin Sodium/ Sodium Chloride 1,500 ml @ As Directed STK-MED ONCE .ROUTE ; Start 04/07/19 at 06:38; Stop 04/07/19 at 06:39; Status DC Heparin Sodium/ Sodium Chloride (HEPARIN for ARTERIAL LINE FLUSH) 1,000 unit 1X ONCE IART Last administered on 04/07/19at 08:52; Start 04/07/19 at 08:30; Stop 04/07/19 at 08:37; Status DC Iohexol (Omnipaque 300 Mg/ml) 4 ml 1X ONCE IART Last administered on 04/07/19at 08:54; Start 04/07/19 at 08:30; Stop 04/07/19 at 08:37; Status DC Iohexol (Omnipaque 300 Mg/ml) 100 ml STK-MED ONCE .ROUTE ; Start 04/07/19 at 06:38; Stop 04/07/19 at 06:38; Status DC Ketamine HCl (Ketamine) 50 mg STK-MED ONCE .ROUTE ; Start 04/07/19 at 07:29; Stop 04/07/19 at 07:30; Status DC Lidocaine HCl (Lidocaine 1% 20ml Vial) 20 ml 1X ONCE INJ Last administered on 04/07/19at 08:53; Start 04/07/19 at 08:30; Stop 04/07/19 at 08:37; Status DC Lidocaine HCl (Lidocaine 1% 20ml Vial) 20 ml STK-MED ONCE .ROUTE ; Start 04/07/19 at 06:38; Stop 04/07/19 at 06:39; Status DC Lidocaine HCl (Lidocaine Pf 2% Vial) 5 ml STK-MED ONCE .ROUTE ; Start 04/07/19 at 06:36; Stop 04/07/19 at 06:36; Status DC Lidocaine HCl (Xylocaine 2% Topical 30gm Tube) 1 kirk 1X ONCE TP Last administered on 04/07/19at 08:30; Start 04/07/19 at 08:30; Stop 04/07/19 at 08:37; Status DC Lidocaine HCl (Xylocaine 2% Topical 30gm Tube) 30 kirk STK-MED ONCE TP ; Start 04/07/19 at 07:51; Stop 04/07/19 at 07:52; Status DC Midazolam HCl (Versed) 2 mg STK-MED ONCE .ROUTE ; Start 04/07/19 at 07:30; Stop 04/07/19 at 07:30; Status DC Nitroglycerin (Nitrostat) 0.4 mg PRN Q5MIN PRN SL CHEST PAIN; Start 04/07/19 at 10:00 Ondansetron HCl (Zofran) 4 mg PRN Q6HRS PRN IVP NAUSEA/VOMITING Last administered on 04/07/19at 10:19; Start 04/07/19 at 10:15 Propofol 40 ml @ As Directed STK-MED ONCE IV ; Start 04/07/19 at 06:36; Stop 04/07/19 at 06:36; Status DC Propofol 100 ml @ As Directed STK-MED ONCE IV ; Start 04/07/19 at 06:36; Stop 04/07/19 at 06:36; Status DC Sodium Chloride 1,000 ml @ 60 mls/hr [id number] IV ; Start 04/07/19 at 10:00 Sodium Chloride (Normal Saline Flush) 3 ml QSHIFT PRN IV AFTER MEDS AND BLOOD DRAWS; Start 04/07/19 at 10:00 Comment Review of Relevant I have reviewed the following items amos (where applicable) has been applied. ANANTH VILLANUEVA MD Apr 07, 2019 13:15
[2019-04-07] MEDS ORDERED: ACETAMINOPHEN 325 MG TABLET. PO PRN (13:30)
--- NOTE | 2019-04-07 16:50 | HP ---
ADMIT DATE: CHIEF COMPLAINT: Visual changes. 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 Basically, she has been having TIA symptoms for some time. Yesterday, she had visual changes. She initially presented to [facility]. Echocardiogram confirmed bubble test positive shunt from the right ventricle to the left ventricle, which is probably causing TIA symptoms. I discussed the case with Dr. Timmons. He wants to take the patient in for repair of her patent foramen ovale. PAST MEDICAL HISTORY: Migraines. ALLERGIES: None. FAMILY HISTORY: Hypertension. 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 She is . Does not drink, smoke, or take drugs. MEDICATIONS: Reviewed, please refer to the MRAD. REVIEW OF SYSTEMS: GENERAL: No history of weight change, weakness or fevers. SKIN: No bruising, hair changes or rashes. EYES: No blurred, double or loss of vision. NOSE AND THROAT: No history of nosebleeds, hoarseness or sore throat. HEART: No history of palpitations, chest pain or shortness of breath on exertion. LUNGS: Denies cough, hemoptysis, wheezing or shortness of breath. GASTROINTESTINAL: Denies changes in appetite, nausea, vomiting, diarrhea or constipation. GENITOURINARY: No history of frequency, urgency, hesitancy or nocturia. NEUROLOGIC: She complains of visual changes, although it has resolved. PSYCHIATRIC: No history of panic, anxiety or depression. ENDOCRINE: No history of heat or cold intolerance, polyuria or polydipsia. EXTREMITIES: Denies muscle weakness, joint pain, pain on walking or stiffness. PHYSICAL EXAMINATION: VITALS: Within normal limits and are stable. GENERAL: No apparent distress. Alert and oriented. HEENT: Head is normocephalic, atraumatic, pupils were equally round and reactive to light and accommodation. NECK: Supple, no JVD, no thyromegaly was noted. LUNGS: Clear to auscultation in all lung graham without rhonchi or wheezing. HEART: RRR, S1, S2 present. Peripheral pulses intact, no obvious murmurs were noted. ABDOMEN: Soft, nontender. Positive bowel sounds no organomegaly, normal bowel sounds. EXTREMITIES: Without any cyanosis, clubbing, or edema. Pedal pulses intact, Homans sign is negative. NEUROLOGIC: Normal speech, normal tone. A & O x3, moves all extremities, no obvious focal deficits. PSYCHIATRIC: Normal affect, normal mood. Stable. SKIN: No ulcerations or rashes, good skin turgor, no jaundice. VASCULAR: Good capillary refill, neurovascular bundle appears to be intact. ASSESSMENT AND PLAN: TIA symptoms probably related to a patent foramen ovale with bubble test positive echocardiogram. The patient has been admitted. We have consulted Dr. Timmons. He is going to take her to the sleep lab technician for correction of her PFO. For now, we will do cardiac monitoring, IV hydration, n.p.o. after midnight, home meds, full code, DVT prophylaxis. MONI MORRIS DO DR: [place]/kait JOB#: [id number] / [id number]
[2019-04-08] MEDS ORDERED: CLOPIDOGREL BISULFATE 75 MG TABLET PO SCH (08:00)
[2019-04-08] MEDS ORDERED: ASPIRIN ENTERIC COATED 325 MG TABLET.DR. PO SCH (08:00)
== END 2019-04-07 17:00 | disposition home or self-care (01) | DRG 229 ==
LOC: 2 SOUTH 16:36
PROVIDERS: ADMIT Family Medicine; ATTEND Family Medicine
PROC: B246ZZ4 Ultrasonography of Right and Left Heart, Transesophageal (ICD-10-PCS; 2019-04-07)
PROC: B2161ZZ Fluoroscopy of Right and Left Heart using Low Osmolar Contrast (ICD-10-PCS; 2019-04-07)
PROC: 02Q Heart and Great Vessels, Repair (ICD-10-PCS; principal; 2019-04-07 07:30)
DX: Q21.1 Atrial septal defect (principal); G45.9 Transient cerebral ischemic attack, unspecified; E03.9 Hypothyroidism, unspecified; G43.109 Migraine with aura, not intractable, without status migrainosus; M19.90 Unspecified osteoarthritis, unspecified site; N92.0 Excessive and frequent menstruation with regular cycle; N94.3 Premenstrual tension syndrome; J32.0 Chronic maxillary sinusitis; H53.19 Other subjective visual disturbances; T38.1X5A Adverse effect of thyroid hormones and substitutes, initial encounter; Y92.89 Other specified places as the place of occurrence of the external cause; Z79.82 Long term (current) use of aspirin; Z87.74 Personal history of (corrected) congenital malformations of heart and circulatory system; Z86.73 Personal history of transient ischemic attack (TIA), and cerebral infarction without residual deficits; Z82.49 Family history of ischemic heart disease and other diseases of the circulatory system
CPT/HCPCS: 93325; 93580; G0269; 36415; 70551; 80053; 80061; 82607; 84443; 85025; 85651; 93312; C1760; C1769; C1817; C1887; C1892; J0690; J1644; J2001; J2250; J2405; J2704; J3010; Q9967; C1771; G0378